=== PATIENT | female | born 2000 | race Caucasian/White ===

== ENCOUNTER 2024-09-16 09:24 | Emergency (ER) | payer OTHER ==
[~2024-09-16] VITALS: Ht 157.5 cm; Wt 77.1 kg
[2024-09-16] MEDS ORDERED: ZAFEMY 150-351 EACH TD (10:28)
[2024-09-16] MEDS ORDERED: VALA500 PO (10:28)
[2024-09-16] MEDS ORDERED: LISDEXAMFETAMIN20 MG PO (10:28)
[2024-09-16] MEDS ORDERED: LAMOTRIGINE25 M4 PO (10:28)
[2024-09-16] MEDS ORDERED: UBRELVY100 MG PO (10:28)
[2024-09-17 16:38] LABS: HIV 1,2 COMBO ANTIGEN/ANTIBODY Negative (Negative)
[2024-09-17 17:50] LABS: HEPATITIS B SURFACE ANTIBODY 7.59 IU/L
[2024-09-17 18:47] LABS: HEPATITIS C AB CIA INTERP Negative (Negative); HEPATITIS C ANTIBODY CIA INDEX 0.08 IV
== END 2024-09-16 10:29 | disposition home or self-care (01) ==
LOC: ER 09:24
PROVIDERS: Student in an Organized Health Care Education/Training Program
DX: T14.8XXA Other injury of unspecified body region, initial encounter (principal); W46.0XXA Contact with hypodermic needle, initial encounter; Z77.21 Contact with and (suspected) exposure to potentially hazardous body fluids
CPT/HCPCS: 36415; 82947; 84460